=== PATIENT | male | born 1945 | race Caucasian/White ===

== ENCOUNTER 2016-11-12 19:55 | Inpatient (IN) | payer OTHER, BC ==
[~2016-11-12] VITALS: Ht 170.2 cm; Wt 75.0 kg
[~2016-11-12 19:55] MED LIST: ENDOCET 5-3251 EACH PO; FAMOTIDINE20 MG PO; FLUOXETINE HCL20 MG PO; FOLIC ACID1 MG PO; KENALOG,ARISTOC80 G1 TP; LIBRIUM25 MG PO; LISINOPRIL-HCT1 EAC3 PO; LISINOPRIL20 MG PO; LORAZEPAM0.5 MG PO; OMEGA-31000 M1 PO; SIMVASTATIN20 MG PO; VITAMIN B-1100 MG PO; VITAMIN D31000 UNIT PO
[2016-11-12 20:18] LABS: HEMATOCRIT 16.5 % (38.0-50.0); MCH 20.5 PG (29.0-34.0); MCHC 28.5 G/DL (30.0-36.0); MEAN PLAT.VOLUME 10.1 uM^3 (9.0-12.4); NRBC (%) 0.4 /100 WBC (0-0); PLATELET COUNT 261 K/uL (156-360); RBC DIS.WIDTH-CV 19.8 % (11.8-14.6); RBC DIS.WIDTH-SD 51.1 % (39-53); RED BLOOD COUNT 2.29 M/uL (4.00-5.50); WHITE BLOOD COUNT 9.3 K/uL (4.1-10.2)
[2016-11-12 20:20] LABS: MCV 72.1 FL (86-99)
[2016-11-12 20:26] LABS: CHLORIDE 106 mEq/L (99-109); POTASSIUM 3.9 mEq/L (3.7-5.4); SODIUM 135 mEq/L (136-147)
[2016-11-12 20:28] LABS: GLUCOSE 185 mg/dL (70-99)
[2016-11-12 20:30] LABS: ANION GAP 10 MEQ/L (2-14)
[2016-11-12 20:32] LABS: GFR ESTIMATE (CALCULATED) > 59 mL/min/
[2016-11-12 20:33] LABS: UREA NITROGEN (BUN) 10 mg/dL (9-23)
[2016-11-12 20:35] LABS: INTER. NORMALIZED RATIO 1.2; PROTHROMBIN TIME 12.6 (9.2-11.2)
[2016-11-12 22:08] VITALS: BP 141/77
[2016-11-12 22:29] VITALS: BP 149/79
[2016-11-12] MEDS ORDERED: TRIAMCINOLONE A15 GM TP (22:53)
[2016-11-12] MEDS ORDERED: MOTRIN400 MG PO (22:57)
[2016-11-12] MEDS ORDERED: BENADRYL25 MG PO (22:58)
[2016-11-12 23:29] VITALS: BP 152/86
[2016-11-13] VITALS (12 sets, daily range): BP systolic 122–169; BP diastolic 60–83
[2016-11-13 02:02] LABS: POINT-OF-CARE METER ID UU14174216
[2016-11-13 06:35] LABS: POINT-OF-CARE METER ID UU14174216
[2016-11-13 07:13] LABS: MCH 24.2 PG (29.0-34.0); MCHC 30.8 G/DL (30.0-36.0); MEAN PLAT.VOLUME 9.8 uM^3 (9.0-12.4); NRBC (%) 0.8 /100 WBC (0-0); PLATELET COUNT 190 K/uL (156-360); RBC DIS.WIDTH-CV 20.2 % (11.8-14.6); RBC DIS.WIDTH-SD 58.2 % (39-53)
[2016-11-13 07:17] LABS: MCV 78.5 FL (86-99); RED BLOOD COUNT 3.31 M/uL (4.00-5.50); WHITE BLOOD COUNT 6.3 K/uL (4.1-10.2)
[2016-11-13 07:19] LABS: ALKALINE PHOSPHATASE 97 IU/L (3-129); ANION GAP 10 MEQ/L (2-14); CHLORIDE 108 MEQ/L (99-109); GFR ESTIMATE (CALCULATED) > 59 mL/min/; GLUCOSE 137 mg/dL (70-99); POTASSIUM 4.6 MEQ/L (3.7-5.4); SAMPLE HEMOLYSIS CHECK 0; SAMPLE ICTERIC CHECK 0; SAMPLE LIPEMIA CHECK 0; SODIUM 138 MEQ/L (136-147); UREA NITROGEN (BUN) 8 mg/dL (9-23)
[2016-11-13 07:20] LABS: TOTAL BILIRUBIN 1.5 MG/DL (0.0-1.0)
[2016-11-13 12:04] LABS: POINT-OF-CARE METER ID UU14174216; POINT-OF-CARE USER ID ENVKC36
[2016-11-13 12:25] LABS: HEMATOCRIT 27.7 % (38.0-50.0); MCV 78.7 FL (86-99)
[2016-11-13 16:17] LABS: POINT-OF-CARE METER ID UU13113819; POINT-OF-CARE USER ID ADMSLT55
[2016-11-13 17:38] LABS: HEMATOCRIT 27.5 % (38.0-50.0); MCV 78.3 FL (86-99)
[2016-11-14] VITALS (9 sets, daily range): BP systolic 132–175; BP diastolic 66–86
[2016-11-14 06:47] LABS: HEMATOCRIT 24.1 % (38.0-50.0); MCH 24.7 PG (29.0-34.0); MCV 77.2 FL (86-99); MEAN PLAT.VOLUME 9.8 uM^3 (9.0-12.4); NRBC (%) 0.4 /100 WBC (0-0); PLATELET COUNT 158 K/uL (156-360); RBC DIS.WIDTH-CV 20.9 % (11.8-14.6); RBC DIS.WIDTH-SD 58.4 % (39-53); RED BLOOD COUNT 3.12 M/uL (4.00-5.50); WHITE BLOOD COUNT 7.5 K/uL (4.1-10.2)
[2016-11-14 07:31] LABS: ALKALINE PHOSPHATASE 72 IU/L (3-129); ANION GAP 8 MEQ/L (2-14); CHLORIDE 103 MEQ/L (99-109); GFR ESTIMATE (CALCULATED) > 59 mL/min/; GLUCOSE 146 mg/dL (70-99); MAGNESIUM 1.3 mg/dl (1.3-2.7); SAMPLE HEMOLYSIS CHECK 0; SAMPLE ICTERIC CHECK 0; SAMPLE LIPEMIA CHECK 0; SODIUM 134 MEQ/L (136-147); UREA NITROGEN (BUN) 9 mg/dL (9-23)
[2016-11-14 07:37] LABS: POTASSIUM 3.6 MEQ/L (3.7-5.4); TOTAL BILIRUBIN 2.2 MG/DL (0.0-1.0)
[2016-11-14 08:52] LABS: BASOPHIL COUNT 0.1 K/uL (0-0.1); EOSINOPHIL (%) 2.4 % (0-5); EOSINOPHIL COUNT 0.2 K/uL (0-0.3); IMMATURE GRANULOCYTE (%) 0.7 % (0.0-0.7); IMMATURE GRANULOCYTE COUNT 0.1 K/uL; INSTRUMENT ABS NEUTROPHIL CT 5.1 K/uL; LYMPHOCYTE COUNT 0.7 K/uL (1.0-2.8); MONOCYTE (%) 18.5 % (3-12); MONOCYTE COUNT 1.4 K/uL (0-0.8); NEUTROPHIL (%) 68.1 % (45-76); NEUTROPHIL COUNT 5.1 K/uL (1.8-6.4)
[2016-11-14 17:12] LABS: HEMATOCRIT 29.7 % (38.0-50.0); MCH 25.5 PG (29.0-34.0); MCHC 31.6 G/DL (30.0-36.0); MCV 80.5 FL (86-99); MEAN PLAT.VOLUME 9.6 uM^3 (9.0-12.4); NRBC (%) 0.3 /100 WBC (0-0); PLATELET COUNT 154 K/uL (156-360); RBC DIS.WIDTH-CV 20.4 % (11.8-14.6); RBC DIS.WIDTH-SD 59.5 % (39-53); RED BLOOD COUNT 3.69 M/uL (4.00-5.50); WHITE BLOOD COUNT 7.7 K/uL (4.1-10.2)
[2016-11-15 03:43] VITALS: BP 132/62
[2016-11-15 07:05] LABS: HEMATOCRIT 29.7 % (38.0-50.0); MCH 24.5 PG (29.0-34.0); MCHC 31.3 G/DL (30.0-36.0); MCV 78.4 FL (86-99); MEAN PLAT.VOLUME 10.2 uM^3 (9.0-12.4); PLATELET COUNT 166 K/uL (156-360); RBC DIS.WIDTH-CV 20.7 % (11.8-14.6); RBC DIS.WIDTH-SD 58.8 % (39-53); RED BLOOD COUNT 3.79 M/uL (4.00-5.50); WHITE BLOOD COUNT 7.5 K/uL (4.1-10.2)
[2016-11-15 07:22] LABS: ALKALINE PHOSPHATASE 66 IU/L (3-129); ANION GAP 8 MEQ/L (2-14); CHLORIDE 103 MEQ/L (99-109); GFR ESTIMATE (CALCULATED) > 59 mL/min/; GLUCOSE 118 mg/dL (70-99); MAGNESIUM 1.3 mg/dl (1.3-2.7); POTASSIUM 3.4 MEQ/L (3.7-5.4); SAMPLE HEMOLYSIS CHECK 0; SAMPLE ICTERIC CHECK 0; SAMPLE LIPEMIA CHECK 0; SODIUM 135 MEQ/L (136-147); UREA NITROGEN (BUN) 6 mg/dL (9-23)
[2016-11-15 07:56] LABS: POINT-OF-CARE USER ID NUTSLF44
[2016-11-15 08:00] VITALS: BP 177/81
[2016-11-15 11:25] VITALS: BP 150/73
[2016-11-15 11:43] LABS: POINT-OF-CARE USER ID NUTSLF44
[2016-11-15 16:00] VITALS: BP 156/77
[2016-11-15 16:30] LABS: POINT-OF-CARE USER ID NUTSLF44
[2016-11-15 19:16] VITALS: BP 181/88
[2016-11-16 01:00] VITALS: BP 146/69
[2016-11-16 05:07] VITALS: BP 163/77
[2016-11-16 06:51] LABS: MCHC 31.3 G/DL (30.0-36.0); MEAN PLAT.VOLUME 9.6 uM^3 (9.0-12.4); PLATELET COUNT 158 K/uL (156-360); RBC DIS.WIDTH-CV 21.7 % (11.8-14.6); RBC DIS.WIDTH-SD 62.5 % (39-53); WHITE BLOOD COUNT 7.6 K/uL (4.1-10.2)
[2016-11-16 07:15] LABS: ANION GAP 8 MEQ/L (2-14); CHLORIDE 104 MEQ/L (99-109); GFR ESTIMATE (CALCULATED) > 59 mL/min/; GLUCOSE 96 mg/dL (70-99); MAGNESIUM 1.3 mg/dl (1.3-2.7); POTASSIUM 3.6 MEQ/L (3.7-5.4); SAMPLE HEMOLYSIS CHECK 0; SAMPLE ICTERIC CHECK 1; SAMPLE LIPEMIA CHECK 0; SODIUM 136 MEQ/L (136-147); UREA NITROGEN (BUN) 6 mg/dL (9-23)
[2016-11-16 07:45] LABS: POINT-OF-CARE METER ID UU13113781; POINT-OF-CARE USER ID NUTSLF44
[2016-11-16 08:16] VITALS: BP 172/81
[2016-11-16 11:43] LABS: POINT-OF-CARE METER ID UU13113781; POINT-OF-CARE USER ID NUTSLF44
[2016-11-16 11:50] VITALS: BP 162/77
[2016-11-16 16:14] LABS: POINT-OF-CARE METER ID UU13113694
[2016-11-16 17:07] LABS: POINT-OF-CARE METER ID UU13113819
[2016-11-16 17:58] LABS: POINT-OF-CARE METER ID UU13113698
[2016-11-16 18:11] VITALS: BP 175/88
[2016-11-16 19:24] VITALS: BP 149/67
[2016-11-16 20:43] LABS: POINT-OF-CARE METER ID UU13113781
[2016-11-17 00:50] VITALS: BP 147/65
[2016-11-17 05:19] VITALS: BP 152/69
[2016-11-17 07:30] LABS: POINT-OF-CARE METER ID UU14174216
[2016-11-17 07:33] VITALS: BP 173/87
[2016-11-17 07:35] LABS: BASOPHIL COUNT 0.1 K/uL (0-0.1); EOSINOPHIL (%) 2.2 % (0-5); EOSINOPHIL COUNT 0.2 K/uL (0-0.3); HEMATOCRIT 31.3 % (38.0-50.0); IMMATURE GRANULOCYTE (%) 0.4 % (0.0-0.7); INSTRUMENT ABS NEUTROPHIL CT 5.5 K/uL; LYMPHOCYTE COUNT 0.6 K/uL (1.0-2.8); MCH 24.5 PG (29.0-34.0); MCHC 31.3 G/DL (30.0-36.0); MCV 78.3 FL (86-99); MEAN PLAT.VOLUME 9.5 uM^3 (9.0-12.4); MONOCYTE (%) 16.9 % (3-12); MONOCYTE COUNT 1.3 K/uL (0-0.8); NEUTROPHIL (%) 71.8 % (45-76); NEUTROPHIL COUNT 5.5 K/uL (1.8-6.4); PLATELET COUNT 144 K/uL (156-360); RBC DIS.WIDTH-CV 21.9 % (11.8-14.6); RBC DIS.WIDTH-SD 61.5 % (39-53); WHITE BLOOD COUNT 7.7 K/uL (4.1-10.2)
[2016-11-17 07:59] LABS: ANION GAP 8 MEQ/L (2-14); CHLORIDE 102 MEQ/L (99-109); GFR ESTIMATE (CALCULATED) > 59 mL/min/; GLUCOSE 92 mg/dL (70-99); MAGNESIUM 1.2 mg/dl (1.3-2.7); POTASSIUM 3.5 MEQ/L (3.7-5.4); SAMPLE HEMOLYSIS CHECK 0; SAMPLE ICTERIC CHECK 1; SAMPLE LIPEMIA CHECK 0; SODIUM 134 MEQ/L (136-147); UREA NITROGEN (BUN) 6 mg/dL (9-23)
[2016-11-17 11:13] LABS: POINT-OF-CARE METER ID UU14174216
[2016-11-17 11:55] VITALS: BP 181/83
[2016-11-17] MEDS ORDERED: PROTONIX40 MG PO (12:31)
== END 2016-11-17 14:42 | disposition home or self-care (01) | DRG 812 ==
LOC: EME 19:55 → EDOF 11-13 00:24 → 4EAST 11-13 00:24
PROVIDERS: Hospitalist; Internal Medicine; Internal Medicine Gastroenterology; Student in an Organized Health Care Education/Training Program
PROC: 30233N1 Transfusion of Nonautologous Red Blood Cells into Peripheral Vein, Percutaneous Approach (ICD-10-PCS; principal; 2016-11-13)
PROC: 0DB68ZX Excision of Stomach, Via Natural or Artificial Opening Endoscopic, Diagnostic (ICD-10-PCS; principal; 2016-11-13)
PROC: 0DBL8ZX Excision of Transverse Colon, Via Natural or Artificial Opening Endoscopic, Diagnostic (ICD-10-PCS; 2016-11-16)
DX: D62 Acute posthemorrhagic anemia (principal); K92.2 Gastrointestinal hemorrhage, unspecified; F33.9 Major depressive disorder, recurrent, unspecified; K70.30 Alcoholic cirrhosis of liver without ascites; K25.9 Gastric ulcer, unspecified as acute or chronic, without hemorrhage or perforation; I85.00 Esophageal varices without bleeding; I10 Essential (primary) hypertension; E78.5 Hyperlipidemia, unspecified; F10.20 Alcohol dependence, uncomplicated; E11.65 Type 2 diabetes mellitus with hyperglycemia; G89.29 Other chronic pain; L30.9 Dermatitis, unspecified; K57.30 Diverticulosis of large intestine without perforation or abscess without bleeding; K64.8 Other hemorrhoids; D12.3 Benign neoplasm of transverse colon; K31.89 Other diseases of stomach and duodenum; D69.6 Thrombocytopenia, unspecified
CPT/HCPCS: 36415; 74174; 80048; 80053; 82948; 83036; 83735; 85014; 85018; 85025; 85027; 85610; 85730; 86850; 86900; 86901; 86920; 88305; 88342 TC; 99281; 99285; C9113; J1815; J2060; J2354; J2704; J3411; J3480; J7030; P9016

== ENCOUNTER 2017-11-02 13:35 | Emergency (ER) | payer OTHER, BC ==
[~2017-11-02] VITALS: Ht 172.7 cm; Wt 77.1 kg
[~2017-11-02 13:35] MED LIST changes: +BENADRYL25 MG PO; +MOTRIN400 MG PO; +PROTONIX40 MG PO; +TRIAMCINOLONE A15 GM TP
[2017-11-02 14:08] LABS: CHLORIDE 104 mEq/L (99-109); POTASSIUM 4.2 mEq/L (3.7-5.4); SODIUM 136 mEq/L (136-147)
[2017-11-02 14:10] LABS: GLUCOSE 169 mg/dL (70-99)
[2017-11-02 14:14] LABS: CREATININE 0.8 mg/dL (0.6-1.3); GFR ESTIMATE (CALCULATED) > 59 mL/min/ (58.99-99999)
[2017-11-02 14:15] LABS: UREA NITROGEN (BUN) 14 mg/dL (9-23)
[2017-11-02 14:20] LABS: HEMOGLOBIN 5.2 G/DL (12.5-16.6); MCHC 28.9 G/DL (30.0-36.0); MCV 72.6 FL (86-99); NRBC (%) 0.3 /100 WBC (0-0); PLATELET COUNT 110 K/uL (156-360); RBC DIS.WIDTH-CV 22.3 % (11.8-14.6); RBC DIS.WIDTH-SD 56.7 % (39-53); RED BLOOD COUNT 2.48 M/uL (4.00-5.50); WHITE BLOOD COUNT 8.9 K/uL (4.1-10.2)
[2017-11-02 15:35] LABS: ABS NEUTROPHIL COUNT 6.8; ANISOCYTOSIS 1+; ATYPICAL LYMPHOCYTE 0.9 %; BAND NEUTROPHILS 0.9 % (0-8.0); EOSINOPHIL ABS CT 0.3; EOSINOPHILS 3.5 % (0-5.0); HYPOCHROMASIA 3+; LYMPHOCYTES 7.8 % (15.0-45.0); MICROCYTOSIS 1+; MONOCYTES 11.3 % (0-9.0); PLAT.SUFFICIENCY ADEQUATE; POLYCHROMASIA 1+; SEG.NEUTROPHILS 75.6 % (46.0-76.0); TARGET CELLS 1+
[2017-11-02 15:39] LABS: ALBUMIN 3.1 G/DL (3.2-4.8); DIRECT BILIRUBIN 0.5 mg/dL (0.0-0.3)
[2017-11-02 15:44] LABS: ALKALINE PHOSPHATASE 121 IU/L (3-129); ALT (GPT) 21 IU/L (3-49); AST (GOT) 52 IU/L (2-34); LIPASE 42 U/L (1.0-51.0); TOTAL PROTEIN 6.7 G/DL (6.4-8.3)
[2017-11-02 16:44] VITALS: BP 152/77
[2017-11-02] MEDS ORDERED: METFORMIN HCL500 MG PO (17:35)
[2017-11-02] MEDS ORDERED: TRAZODONE HCL50 MG PO (17:36)
== END 2017-11-02 16:44 | disposition home or self-care (01) ==
LOC: EME 13:35
PROVIDERS: Emergency Medicine
DX: D64.9 Anemia, unspecified (principal); K74.60 Unspecified cirrhosis of liver; I10 Essential (primary) hypertension; E11.9 Type 2 diabetes mellitus without complications; F41.9 Anxiety disorder, unspecified; F32.9 Major depressive disorder, single episode, unspecified
CPT/HCPCS: 80048; 80076; 82607; 83690; 85007; 85027; 86850; 86900; 86901; 86920; 99281; 99285; J7030

== ENCOUNTER 2017-11-08 16:51 | Inpatient (IN) | payer OTHER, BC ==
[~2017-11-08] VITALS: Ht 170.2 cm; Wt 70.3 kg
[~2017-11-08 16:51] MED LIST changes: +METFORMIN HCL500 MG PO; +TRAZODONE HCL50 MG PO
[2017-11-08 17:38] LABS: HEMATOCRIT 24.6 % (38.0-50.0); HEMOGLOBIN 7.4 G/DL (12.5-16.6); MCHC 30.1 G/DL (30.0-36.0); MCV 76.4 FL (86-99); PLATELET COUNT 142 K/uL (156-360); RBC DIS.WIDTH-CV 22.9 % (11.8-14.6); RBC DIS.WIDTH-SD 62.1 % (39-53); RED BLOOD COUNT 3.22 M/uL (4.00-5.50)
[2017-11-08 17:49] LABS: ALBUMIN 3.2 g/dL (3.2-4.8); CHLORIDE 101 mEq/L (99-109); POTASSIUM 4.1 mEq/L (3.7-5.4); SODIUM 134 mEq/L (136-147)
[2017-11-08 17:51] LABS: GLUCOSE 126 mg/dL (70-99); TOTAL PROTEIN 7.5 g/dL (6.4-8.3)
[2017-11-08 17:53] LABS: TOTAL BILIRUBIN 1.6 mg/dL (0.0-1.0)
[2017-11-08 17:55] LABS: ALKALINE PHOSPHATASE 139 IU/L (3-129); CREATININE 0.7 mg/dL (0.6-1.3); GFR ESTIMATE (CALCULATED) > 59 mL/min/ (58.99-99999)
[2017-11-08 17:56] LABS: UREA NITROGEN (BUN) 14 mg/dL (9-23)
[2017-11-08 17:57] LABS: AST (GOT) 52 IU/L (2-34)
[2017-11-08 17:58] LABS: ALT (GPT) 23 IU/L (3-49)
[2017-11-08] MEDS ORDERED: KENALOG,ARISTOC80 GM TP (18:38)
[2017-11-08] MEDS ORDERED: METFORMIN HCL1000 MG PO (18:38)
[2017-11-08] MEDS ORDERED: FUROSEMIDE20 MG PO (18:39)
[2017-11-08] MEDS ORDERED: [UNRECOGNIZED DRUG - OTHER] PO (18:44)
[2017-11-08] MEDS ORDERED: NALTREXONE HCL50 MG PO (18:45)
[2017-11-08] MEDS ORDERED: CORGARD20 MG PO (18:46)
[2017-11-08] MEDS ORDERED: LISINOPRIL2.5 MG PO (18:48)
[2017-11-08 20:47] VITALS: BP 161/81
[2017-11-08 21:03] VITALS: BP 136/61
[2017-11-08 22:08] VITALS: BP 164/87
[2017-11-08 22:36] LABS: MAGNESIUM 1.3 mg/dL (1.3-2.7)
[2017-11-09] VITALS: BP 170/79
[2017-11-09 00:36] LABS: HEMATOCRIT 25.6 % (38.0-50.0); MCV 75.1 FL (86-99)
[2017-11-09 04:00] VITALS: BP 187/77
[2017-11-09 06:21] LABS: HEMATOCRIT 27.1 % (38.0-50.0); HEMOGLOBIN 8.1 G/DL (12.5-16.6); MCV 75.5 FL (86-99)
[2017-11-09 06:46] LABS: CHLORIDE 101 MEQ/L (99-109); CREATININE 0.6 MG/DL (0.6-1.3); GFR ESTIMATE (CALCULATED) > 59 mL/min/ (58.99-99999); GLUCOSE 158 mg/dL (70-99); POTASSIUM 4.2 MEQ/L (3.7-5.4); SODIUM 134 MEQ/L (136-147); UREA NITROGEN (BUN) 11 mg/dL (9-23)
[2017-11-09 08:02] VITALS: BP 172/73
[2017-11-09 12:00] VITALS: BP 154/74
[2017-11-09 13:57] LABS: HEMATOCRIT 26.5 % (38.0-50.0); MCV 75.9 FL (86-99)
[2017-11-09 18:31] LABS: HEMATOCRIT 27.7 % (38.0-50.0); HEMOGLOBIN 8.2 G/DL (12.5-16.6); MCV 75.9 FL (86-99)
[2017-11-09 20:11] VITALS: BP 153/70
[2017-11-09 23:29] VITALS: BP 102/57
[2017-11-10 04:18] VITALS: BP 142/72
[2017-11-10 06:13] LABS: HEMATOCRIT 27.9 % (38.0-50.0); HEMOGLOBIN 8.5 G/DL (12.5-16.6); MCH 23.4 PG (29.0-34.0); MCHC 30.5 G/DL (30.0-36.0); MCV 76.6 FL (86-99); RBC DIS.WIDTH-CV 22.8 % (11.8-14.6); RBC DIS.WIDTH-SD 62.1 % (39-53); RED BLOOD COUNT 3.64 M/uL (4.00-5.50); WHITE BLOOD COUNT 7.9 K/uL (4.1-10.2)
[2017-11-10 06:14] LABS: PLATELET COUNT 186 K/uL (156-360)
[2017-11-10 06:16] LABS: BASOPHIL (%) 0.6 % (0-1); BASOPHIL COUNT 0.1 K/uL (0-0.1); EOSINOPHIL (%) 2.8 % (0-5); EOSINOPHIL COUNT 0.2 K/uL (0-0.3); IMMATURE GRANULOCYTE (%) 0.6 % (0.0-0.7); LYMPHOCYTE (%) 9.7 % (15-42); LYMPHOCYTE COUNT 0.8 K/uL (1.0-2.8); MONOCYTE (%) 19.1 % (3-12); MONOCYTE COUNT 1.5 K/uL (0-0.8); NEUTROPHIL (%) 67.2 % (45-76); NEUTROPHIL COUNT 5.3 K/uL (1.8-6.4)
[2017-11-10 06:36] LABS: ALBUMIN 3.1 G/DL (3.2-4.8); ALKALINE PHOSPHATASE 93 IU/L (3-129); ALT (GPT) 18 IU/L (3-49); AST (GOT) 49 IU/L (2-34); CHLORIDE 103 MEQ/L (99-109); CREATININE 0.7 MG/DL (0.6-1.3); GFR ESTIMATE (CALCULATED) > 59 mL/min/ (58.99-99999); GLUCOSE 165 mg/dL (70-99); MAGNESIUM 1.5 mg/dl (1.3-2.7); POTASSIUM 3.8 MEQ/L (3.7-5.4); SODIUM 134 MEQ/L (136-147); TOTAL BILIRUBIN 1.7 MG/DL (0.0-1.0); UREA NITROGEN (BUN) 11 mg/dL (9-23)
[2017-11-10 07:47] VITALS: BP 173/72
[2017-11-10] MEDS ORDERED: PANTOPRAZOLE SO40 MG PO (11:41)
[2017-11-10] MEDS ORDERED: KEFLEX500 MG PO (11:42)
== END 2017-11-10 16:24 | disposition home or self-care (01) | DRG 378 ==
LOC: EME 16:51 → 5SOUTH 21:51 → EDOF 21:51 → ENRESERV 21:52 → 5SOUTH 23:29
PROVIDERS: Hospitalist; Nurse Practitioner Family; Physician Assistant
PROC: 30233N1 Transfusion of Nonautologous Red Blood Cells into Peripheral Vein, Percutaneous Approach (ICD-10-PCS; principal; 2017-11-08)
PROC: 0DJ08ZZ Inspection of Upper Intestinal Tract, Via Natural or Artificial Opening Endoscopic (ICD-10-PCS; 2017-11-09)
DX: K92.2 Gastrointestinal hemorrhage, unspecified (principal); K70.30 Alcoholic cirrhosis of liver without ascites; I85.10 Secondary esophageal varices without bleeding; R56.9 Unspecified convulsions; I86.4 Gastric varices; L03.115 Cellulitis of right lower limb; D62 Acute posthemorrhagic anemia; E11.9 Type 2 diabetes mellitus without complications; E78.5 Hyperlipidemia, unspecified; K52.9 Noninfective gastroenteritis and colitis, unspecified; F10.10 Alcohol abuse, uncomplicated; I10 Essential (primary) hypertension; F32.9 Major depressive disorder, single episode, unspecified; K70.10 Alcoholic hepatitis without ascites; K59.00 Constipation, unspecified; K76.6 Portal hypertension; L30.9 Dermatitis, unspecified; K64.8 Other hemorrhoids; K31.89 Other diseases of stomach and duodenum; K21.9 Gastro-esophageal reflux disease without esophagitis; G89.29 Other chronic pain; Z87.11 Personal history of peptic ulcer disease; Z86.010 Personal history of colon polyps; Z81.1 Family history of alcohol abuse and dependence
CPT/HCPCS: 74177; 80048; 80053; 82948; 83735; 85014; 85018; 85025; 85027; 86850; 86900; 86901; 86920; 99281; 99285; C9113; J0690; J2270; J2354; J3411; J3475; J7030; J7042; J7050; P9016

== ENCOUNTER 2018-03-13 09:14 | Inpatient (IN) | payer OTHER, BC ==
[~2018-03-13] VITALS: Ht 170.2 cm; Wt 75.3 kg
[2018-03-13] VITALS (8 sets, daily range): BP systolic 145–185; BP diastolic 70–88
[~2018-03-13 09:14] MED LIST changes: +CORGARD20 MG PO; +FUROSEMIDE20 MG PO; +KEFLEX500 MG PO; +KENALOG,ARISTOC80 GM TP; +LISINOPRIL2.5 MG PO; +METFORMIN HCL1000 MG PO; +NALTREXONE HCL50 MG PO; +PANTOPRAZOLE SO40 MG PO; +[UNRECOGNIZED DRUG - OTHER] PO
[2018-03-13 10:06] LABS: HEMATOCRIT 24.1 % (38.0-50.0); HEMOGLOBIN 7.1 G/DL (12.5-16.6); MCH 22.5 PG (29.0-34.0); MCHC 29.5 G/DL (30.0-36.0); MCV 76.5 FL (86-99); NRBC (%) 0.8 /100 WBC (0-0); PLATELET COUNT 59 K/uL (156-360); RBC DIS.WIDTH-CV 21.9 % (11.8-14.6); RBC DIS.WIDTH-SD 58.9 % (39-53); RED BLOOD COUNT 3.15 M/uL (4.00-5.50); WHITE BLOOD COUNT 3.9 K/uL (4.1-10.2)
[2018-03-13 10:13] LABS: INTER. NORMALIZED RATIO 1.3
[2018-03-13 10:15] LABS: PTT 32.8 SEC (25-37)
[2018-03-13 10:16] LABS: CHLORIDE 101 mEq/L (99-109); POTASSIUM 3.9 mEq/L (3.7-5.4)
[2018-03-13 10:18] LABS: GLUCOSE 198 mg/dL (70-99); TOTAL PROTEIN 6.9 g/dL (6.4-8.3)
[2018-03-13 10:20] LABS: TOTAL BILIRUBIN 1.5 mg/dL (0.0-1.0)
[2018-03-13 10:21] LABS: ALKALINE PHOSPHATASE 146 IU/L (3-129)
[2018-03-13 10:22] LABS: CREATININE 0.8 mg/dL (0.6-1.3); GFR ESTIMATE (CALCULATED) > 59 mL/min/ (58.99-99999)
[2018-03-13 10:23] LABS: AST (GOT) 86 IU/L (2-34); UREA NITROGEN (BUN) 8 mg/dL (9-23)
[2018-03-13 10:25] LABS: ALT (GPT) 26 IU/L (3-49); LIPASE 26 U/L (1.0-51.0)
[2018-03-13 10:28] LABS: SODIUM 133 mEq/L (136-147); TROP-I INTERPRETATION NEGATIVE; TROPONIN-I < 0.01 ng/mL (0.0-0.30)
[2018-03-13 10:51] LABS: BASOPHIL (%) 0.5 % (0-1); EOSINOPHIL (%) 0.3 % (0-5); IMMATURE GRANULOCYTE (%) 3.3 % (0.0-0.7); LYMPHOCYTE (%) 6.9 % (15-42); LYMPHOCYTE COUNT 0.3 K/uL (1.0-2.8); MONOCYTE (%) 16.7 % (3-12); MONOCYTE COUNT 0.7 K/uL (0-0.8); NEUTROPHIL (%) 72.3 % (45-76); NEUTROPHIL COUNT 2.8 K/uL (1.8-6.4)
[2018-03-13 11:49] LABS: APPEARANCE CLEAR ((CLEAR)); BILIRUBIN NEGATIVE; BLOOD NEGATIVE; COLOR YELLOW ((YELLOW)); GLUCOSE (STRIP) 50; KETONES NEGATIVE; LEUKOCYTES NEGATIVE; NITRITE NEGATIVE; PROTEIN (STRIP) NEGATIVE; SPECIFIC GRAVITY 1.011 (1.000-1.030); UCUL ADDED? NO
[2018-03-13 12:56] LABS: HEMATOCRIT 20.6 % (38.0-50.0); IMM.PLATELET FRACTION 5.6 (1-7); MCH 22.8 PG (29.0-34.0); MCHC 30.1 G/DL (30.0-36.0); MCV 75.7 FL (86-99); NRBC (%) 0.6 /100 WBC (0-0); PLATELET COUNT 51 K/uL (156-360); RBC DIS.WIDTH-CV 21.8 % (11.8-14.6); RBC DIS.WIDTH-SD 58.4 % (39-53); RED BLOOD COUNT 2.72 M/uL (4.00-5.50); WHITE BLOOD COUNT 3.6 K/uL (4.1-10.2)
[2018-03-13 12:57] LABS: HEMOGLOBIN 6.2 G/DL (12.5-16.6)
[2018-03-13 13:02] LABS: ALBUMIN 2.6 g/dL (3.2-4.8); CHLORIDE 105 mEq/L (99-109); POTASSIUM 3.3 mEq/L (3.7-5.4); SODIUM 134 mEq/L (136-147)
[2018-03-13 13:03] LABS: MAGNESIUM 1.2 mg/dL (1.3-2.7)
[2018-03-13 13:05] LABS: GLUCOSE 148 mg/dL (70-99)
[2018-03-13 13:07] LABS: TOTAL BILIRUBIN 1.5 mg/dL (0.0-1.0)
[2018-03-13 13:08] LABS: ALKALINE PHOSPHATASE 122 IU/L (3-129)
[2018-03-13 13:09] LABS: CREATININE 0.7 mg/dL (0.6-1.3); GFR ESTIMATE (CALCULATED) > 59 mL/min/ (58.99-99999)
[2018-03-13 13:10] LABS: AST (GOT) 79 IU/L (2-34); UREA NITROGEN (BUN) 6 mg/dL (9-23)
[2018-03-13 13:11] LABS: ALT (GPT) 23 IU/L (3-49)
[2018-03-13 13:56] LABS: BASOPHIL (%) 0.6 % (0-1); EOSINOPHIL (%) 0.3 % (0-5); IMMATURE GRANULOCYTE (%) 2.2 % (0.0-0.7); LYMPHOCYTE (%) 8.4 % (15-42); LYMPHOCYTE COUNT 0.3 K/uL (1.0-2.8); MONOCYTE (%) 18.2 % (3-12); MONOCYTE COUNT 0.7 K/uL (0-0.8); NEUTROPHIL (%) 70.3 % (45-76); NEUTROPHIL COUNT 2.5 K/uL (1.8-6.4); PLAT.SUFFICIENCY DECREASED
[2018-03-13 16:17] LABS: IMM.RETIC FRACTION 40.9 % (3-19); RETIC HGB EQUIVALENT 24.2 (28-36); RETICULOCYTE COUNT 2.9 % (0.5-1.8)
[2018-03-13 16:50] LABS: IRON 45 MCG/DL (35-150)
[2018-03-13 17:03] LABS: LACTATE DEHYDROGENASE 263 IU/L (20-246)
[2018-03-13 17:23] LABS: FOLIC ACID (FOLATE) 13.6 NG/ML (5.0-22.0)
[2018-03-14] VITALS (7 sets, daily range): BP systolic 128–168; BP diastolic 65–84
[2018-03-14 07:11] LABS: HEMATOCRIT 29.1 % (38.0-50.0); HEMOGLOBIN 8.7 G/DL (12.5-16.6); MCH 23.5 PG (29.0-34.0); MCHC 29.9 G/DL (30.0-36.0); MCV 78.6 FL (86-99); NRBC (%) 0.8 /100 WBC (0-0); PLATELET COUNT 55 K/uL (156-360); RBC DIS.WIDTH-CV 21.2 % (11.8-14.6); RBC DIS.WIDTH-SD 58.7 % (39-53); WHITE BLOOD COUNT 3.5 K/uL (4.1-10.2)
[2018-03-14 07:22] LABS: ALBUMIN 2.6 G/DL (3.2-4.8); ALKALINE PHOSPHATASE 101 IU/L (3-129); ALT (GPT) 19 IU/L (3-49); AST (GOT) 73 IU/L (2-34); CHLORIDE 102 MEQ/L (99-109); CREATININE 0.6 MG/DL (0.6-1.3); GFR ESTIMATE (CALCULATED) > 59 mL/min/ (58.99-99999); POTASSIUM 3.4 MEQ/L (3.7-5.4); SODIUM 135 MEQ/L (136-147); UREA NITROGEN (BUN) 8 mg/dL (9-23)
[2018-03-14 07:27] LABS: GLUCOSE 107 mg/dL (70-99); TOTAL BILIRUBIN 2.1 MG/DL (0.0-1.0)
[2018-03-15 04:38] VITALS: BP 180/79
[2018-03-15 07:40] VITALS: BP 160/77
[2018-03-15 11:00] VITALS: BP 150/72
[2018-03-15 12:54] LABS: BASOPHIL (%) 0.6 % (0-1); EOSINOPHIL (%) 0.3 % (0-5); HEMATOCRIT 27.6 % (38.0-50.0); HEMOGLOBIN 8.7 G/DL (12.5-16.6); IMMATURE GRANULOCYTE (%) 1.4 % (0.0-0.7); LYMPHOCYTE (%) 14.2 % (15-42); LYMPHOCYTE COUNT 0.5 K/uL (1.0-2.8); MCH 23.9 PG (29.0-34.0); MCHC 31.5 G/DL (30.0-36.0); MCV 75.8 FL (86-99); MONOCYTE COUNT 0.5 K/uL (0-0.8); NEUTROPHIL (%) 68.5 % (45-76); NEUTROPHIL COUNT 2.5 K/uL (1.8-6.4); NRBC (%) 1.1 /100 WBC (0-0); RBC DIS.WIDTH-CV 21.2 % (11.8-14.6); RBC DIS.WIDTH-SD 56.4 % (39-53); RED BLOOD COUNT 3.64 M/uL (4.00-5.50); WHITE BLOOD COUNT 3.6 K/uL (4.1-10.2)
[2018-03-15 13:38] LABS: ANISOCYTOSIS 2+; HYPOCHROMASIA 1+; MACROCYTES 1+; MICROCYTOSIS 2+; PLAT.SUFFICIENCY DECREASED; PLATELET COUNT 60 K/uL (156-360); POLYCHROMASIA 1+; TARGET CELLS 1+
[2018-03-15 15:25] VITALS: BP 144/73
[2018-03-15 22:45] VITALS: BP 171/83
[2018-03-16 07:40] VITALS: BP 164/80
[2018-03-16 10:08] LABS: HEMATOCRIT 29.5 % (38.0-50.0); HEMOGLOBIN 9.2 G/DL (12.5-16.6); MCHC 31.2 G/DL (30.0-36.0); NRBC (%) 0.5 /100 WBC (0-0); RBC DIS.WIDTH-CV 22.4 % (11.8-14.6); RBC DIS.WIDTH-SD 59.6 % (39-53); RED BLOOD COUNT 3.83 M/uL (4.00-5.50)
[2018-03-16 10:15] LABS: ALBUMIN 2.6 G/DL (3.2-4.8); ALKALINE PHOSPHATASE 85 IU/L (3-129); ALT (GPT) 23 IU/L (3-49); AST (GOT) 87 IU/L (2-34); CHLORIDE 103 MEQ/L (99-109); CREATININE 0.6 MG/DL (0.6-1.3); GFR ESTIMATE (CALCULATED) > 59 mL/min/ (58.99-99999); GLUCOSE 139 mg/dL (70-99); POTASSIUM 2.8 MEQ/L (3.7-5.4); SODIUM 136 MEQ/L (136-147); TOTAL BILIRUBIN 2.5 MG/DL (0.0-1.0); UREA NITROGEN (BUN) 8 mg/dL (9-23)
[2018-03-16 10:31] LABS: BASOPHIL (%) 0.2 % (0-1); EOSINOPHIL (%) 0 % (0-5); IMMATURE GRANULOCYTE (%) 1.7 % (0.0-0.7); LYMPHOCYTE (%) 17.1 % (15-42); LYMPHOCYTE COUNT 0.7 K/uL (1.0-2.8); MONOCYTE (%) 13.4 % (3-12); MONOCYTE COUNT 0.5 K/uL (0-0.8); NEUTROPHIL (%) 67.6 % (45-76); NEUTROPHIL COUNT 2.7 K/uL (1.8-6.4); PLAT.SUFFICIENCY DECREASED; PLATELET COUNT 64 K/uL (156-360)
[2018-03-16 15:00] VITALS: BP 155/73
[2018-03-16 23:53] VITALS: BP 177/79
[2018-03-17 00:19] VITALS: BP 160/77
[2018-03-17 07:00] VITALS: BP 139/79
[2018-03-17 10:41] LABS: HEMATOCRIT 29.2 % (38.0-50.0); HEMOGLOBIN 8.8 G/DL (12.5-16.6); MCH 23.2 PG (29.0-34.0); MCHC 30.1 G/DL (30.0-36.0); MCV 76.8 FL (86-99); NRBC (%) 1.4 /100 WBC (0-0); RBC DIS.WIDTH-CV 22.6 % (11.8-14.6); RBC DIS.WIDTH-SD 60.1 % (39-53); WHITE BLOOD COUNT 4.9 K/uL (4.1-10.2)
[2018-03-17 11:14] LABS: PLAT.SUFFICIENCY DECREASED; PLATELET COUNT 66 K/uL (156-360)
[2018-03-17 11:26] LABS: CHLORIDE 102 MEQ/L (99-109); CREATININE 0.5 MG/DL (0.6-1.3); GFR ESTIMATE (CALCULATED) > 59 mL/min/ (58.99-99999); GLUCOSE 170 mg/dL (70-99); MAGNESIUM 1.2 mg/dl (1.3-2.7); POTASSIUM 2.7 MEQ/L (3.7-5.4); SODIUM 134 MEQ/L (136-147); UREA NITROGEN (BUN) 9 mg/dL (9-23)
[2018-03-17 16:01] VITALS: BP 160/72
[2018-03-17 23:36] VITALS: BP 159/78
[2018-03-18 07:22] VITALS: BP 179/85
[2018-03-18 16:29] VITALS: BP 143/67
[2018-03-18 17:03] LABS: CHLORIDE 105 MEQ/L (99-109); CREATININE 0.7 MG/DL (0.6-1.3); GFR ESTIMATE (CALCULATED) > 59 mL/min/ (58.99-99999); GLUCOSE 173 mg/dL (70-99); PHOSPHORUS 2.5 mg/dL (2.5-4.9); SODIUM 135 MEQ/L (136-147); UREA NITROGEN (BUN) 10 mg/dL (9-23)
[2018-03-18 17:08] LABS: MAGNESIUM 1.9 mg/dl (1.3-2.7); POTASSIUM 3.4 MEQ/L (3.7-5.4)
[2018-03-18 19:11] VITALS: BP 147/70
[2018-03-18 23:01] VITALS: BP 160/76
[2018-03-19 06:55] VITALS: BP 181/84
[2018-03-19 07:08] LABS: CHLORIDE 107 MEQ/L (99-109); CREATININE 0.6 MG/DL (0.6-1.3); GFR ESTIMATE (CALCULATED) > 59 mL/min/ (58.99-99999); GLUCOSE 123 mg/dL (70-99); POTASSIUM 3.5 MEQ/L (3.7-5.4); SODIUM 140 MEQ/L (136-147); UREA NITROGEN (BUN) 12 mg/dL (9-23)
[2018-03-19 10:45] VITALS: BP 111/55
[2018-03-19 15:20] VITALS: BP 108/58
[2018-03-19 22:57] VITALS: BP 139/73
[2018-03-20 06:47] VITALS: BP 159/74
[2018-03-20 11:22] VITALS: BP 152/70
[2018-03-20 16:16] VITALS: BP 145/66
[2018-03-20 22:53] VITALS: BP 133/60
[2018-03-21 05:55] VITALS: BP 160/75
[2018-03-21 06:04] LABS: ALBUMIN 2.3 G/DL (3.2-4.8); ALKALINE PHOSPHATASE 101 IU/L (3-129); ALT (GPT) 39 IU/L (3-49); AST (GOT) 118 IU/L (2-34); CHLORIDE 111 MEQ/L (99-109); CREATININE 0.7 MG/DL (0.6-1.3); GFR ESTIMATE (CALCULATED) > 59 mL/min/ (58.99-99999); GLUCOSE 129 mg/dL (70-99); POTASSIUM 3.3 MEQ/L (3.7-5.4); SODIUM 141 MEQ/L (136-147); TOTAL PROTEIN 5.6 G/DL (6.4-8.3); UREA NITROGEN (BUN) 15 mg/dL (9-23)
[2018-03-21 06:05] LABS: HEMATOCRIT 29.6 % (38.0-50.0); HEMOGLOBIN 9.4 G/DL (12.5-16.6); MCH 24.4 PG (29.0-34.0); MCHC 31.8 G/DL (30.0-36.0); MCV 76.7 FL (86-99); NRBC (%) 0.7 /100 WBC (0-0); RBC DIS.WIDTH-SD 60.8 % (39-53); RED BLOOD COUNT 3.86 M/uL (4.00-5.50); TOTAL BILIRUBIN 5.2 MG/DL (0.0-1.0); WHITE BLOOD COUNT 8.6 K/uL (4.1-10.2)
[2018-03-21 06:21] LABS: PLATELET COUNT 99 K/uL (156-360)
[2018-03-21 07:45] VITALS: BP 146/69
[2018-03-21 16:20] VITALS: BP 179/84
[2018-03-21 22:38] VITALS: BP 193/84
[2018-03-22 05:27] VITALS: BP 162/78
[2018-03-22 06:26] LABS: HEMATOCRIT 32.1 % (38.0-50.0); HEMOGLOBIN 10.2 G/DL (12.5-16.6); MCH 24.3 PG (29.0-34.0); MCHC 31.8 G/DL (30.0-36.0); MCV 76.6 FL (86-99); NRBC (%) 0.5 /100 WBC (0-0); RBC DIS.WIDTH-CV 26.4 % (11.8-14.6); RBC DIS.WIDTH-SD 58.4 % (39-53); RED BLOOD COUNT 4.19 M/uL (4.00-5.50); WHITE BLOOD COUNT 11.1 K/uL (4.1-10.2)
[2018-03-22 06:27] LABS: ALBUMIN 2.4 G/DL (3.2-4.8); ALKALINE PHOSPHATASE 117 IU/L (3-129); ALT (GPT) 41 IU/L (3-49); AST (GOT) 121 IU/L (2-34); CHLORIDE 109 MEQ/L (99-109); CREATININE 0.7 MG/DL (0.6-1.3); GFR ESTIMATE (CALCULATED) > 59 mL/min/ (58.99-99999); GLUCOSE 151 mg/dL (70-99); POTASSIUM 2.9 MEQ/L (3.7-5.4); SODIUM 142 MEQ/L (136-147); TOTAL BILIRUBIN 6.2 MG/DL (0.0-1.0); TOTAL PROTEIN 6.1 G/DL (6.4-8.3); UREA NITROGEN (BUN) 10 mg/dL (9-23)
[2018-03-22 07:07] LABS: PLAT.SUFFICIENCY DECREASED; PLATELET COUNT 99 K/uL (156-360)
[2018-03-22 07:25] VITALS: BP 176/75
[2018-03-22 09:34] LABS: MAGNESIUM 1.3 mg/dl (1.3-2.7)
[2018-03-22 23:43] VITALS: BP 139/63
[2018-03-23 08:06] VITALS: BP 178/85
[2018-03-23 09:25] LABS: ALBUMIN 2.4 G/DL (3.2-4.8); ALKALINE PHOSPHATASE 122 IU/L (3-129); ALT (GPT) 48 IU/L (3-49); AST (GOT) 134 IU/L (2-34); CHLORIDE 112 MEQ/L (99-109); CREATININE 0.8 MG/DL (0.6-1.3); GFR ESTIMATE (CALCULATED) > 59 mL/min/ (58.99-99999); GLUCOSE 132 mg/dL (70-99); POTASSIUM 2.7 MEQ/L (3.7-5.4); SODIUM 145 MEQ/L (136-147); TOTAL BILIRUBIN 6.7 MG/DL (0.0-1.0); TOTAL PROTEIN 6.3 G/DL (6.4-8.3); UREA NITROGEN (BUN) 13 mg/dL (9-23)
[2018-03-23 15:45] VITALS: BP 132/69
[2018-03-24 00:06] VITALS: BP 132/62
[2018-03-24 07:40] VITALS: BP 148/75
[2018-03-24 10:28] LABS: CHLORIDE 114 MEQ/L (99-109); CREATININE 0.7 MG/DL (0.6-1.3); GFR ESTIMATE (CALCULATED) > 59 mL/min/ (58.99-99999); GLUCOSE 169 mg/dL (70-99); POTASSIUM 2.8 MEQ/L (3.7-5.4); SODIUM 145 MEQ/L (136-147); UREA NITROGEN (BUN) 16 mg/dL (9-23)
[2018-03-24 15:00] VITALS: BP 133/67
[2018-03-24 23:25] VITALS: BP 177/79
[2018-03-25 06:49] LABS: CHLORIDE 114 MEQ/L (99-109); CREATININE 0.6 MG/DL (0.6-1.3); GFR ESTIMATE (CALCULATED) > 59 mL/min/ (58.99-99999); GLUCOSE 125 mg/dL (70-99); POTASSIUM 3.1 MEQ/L (3.7-5.4); SODIUM 149 MEQ/L (136-147); UREA NITROGEN (BUN) 15 mg/dL (9-23)
[2018-03-25 07:20] VITALS: BP 145/71
[2018-03-25 16:49] VITALS: BP 139/60
[2018-03-25 23:24] VITALS: BP 155/75
[2018-03-26 07:30] VITALS: BP 142/65
[2018-03-26 09:23] LABS: CHLORIDE 116 MEQ/L (99-109); CREATININE 0.6 MG/DL (0.6-1.3); GFR ESTIMATE (CALCULATED) > 59 mL/min/ (58.99-99999); GLUCOSE 123 mg/dL (70-99); POTASSIUM 3.1 MEQ/L (3.7-5.4); SODIUM 146 MEQ/L (136-147); UREA NITROGEN (BUN) 17 mg/dL (9-23)
[2018-03-26 10:50] VITALS: BP 133/69
[2018-03-26] MEDS ORDERED: XIFAXAN550 MG PO (11:18)
[2018-03-26] MEDS ORDERED: NADOLOL20 MG PO (11:18)
[2018-03-26] MEDS ORDERED: SPIRONOLACTONE25 MG PO (11:19)
[2018-03-26] MEDS ORDERED: CONSTULOSE10 GM/15 M PO (11:20)
[2018-03-26] MEDS ORDERED: POTASSIUM20 MEQ/11 PO (11:21)
[2018-03-26 15:25] VITALS: BP 143/69
== END 2018-03-26 15:53 | disposition hospice, home (50) | DRG 809 ==
LOC: EME 09:14 → 5EAST 11:48 → EDOF 11:48 → ENRESERV 11:51 → 5EAST 15:00
PROVIDERS: Emergency Medicine; Hospitalist; Internal Medicine; Internal Medicine Gastroenterology; Nurse Practitioner Family
PROC: 30233N1 Transfusion of Nonautologous Red Blood Cells into Peripheral Vein, Percutaneous Approach (ICD-10-PCS; principal; 2018-03-13)
DX: D61.818 Other pancytopenia (principal); D62 Acute posthemorrhagic anemia; E87.2 Acidosis; R13.10 Dysphagia, unspecified; E87.0 Hyperosmolality and hypernatremia; E86.0 Dehydration; B00.9 Herpesviral infection, unspecified; E83.42 Hypomagnesemia; K76.6 Portal hypertension; R50.9 Fever, unspecified; E87.6 Hypokalemia; K72.90 Hepatic failure, unspecified without coma; K70.31 Alcoholic cirrhosis of liver with ascites; K70.11 Alcoholic hepatitis with ascites; F10.239 Alcohol dependence with withdrawal, unspecified; I10 Essential (primary) hypertension; E78.5 Hyperlipidemia, unspecified; E11.9 Type 2 diabetes mellitus without complications; K21.9 Gastro-esophageal reflux disease without esophagitis; F33.9 Major depressive disorder, recurrent, unspecified; F41.9 Anxiety disorder, unspecified; G89.4 Chronic pain syndrome; M54.9 Dorsalgia, unspecified; Z79.84 Long term (current) use of oral hypoglycemic drugs; Z87.891 Personal history of nicotine dependence
CPT/HCPCS: 71045; 74176; 74230; 80048; 80053; 80076; 80202; 81003; 82140; 82607; 82728; 82746; 82948; 83010 90; 83540; 83605; 83615; 83690; 83735; 83880; 84075; 84100; 84484; 85025; 85025 91; 85027; 85046; 85610; 85730; 86747 90; 86850; 86900; 86901; 86920; 87040; 87497 90; 92526 GN; 92610 GN; 92611 GN; 94799; 97530 GP; 99281; 99285; J0133; J0360; J0696; J1756; J1815; J2060; J2543; J3370; J3411; J3475; J3480; J7030; J7042; J7050; P9016